=== PATIENT | female | born 1985 | race Caucasian/White ===

== ENCOUNTER 2022-04-03 08:31 | Day surgery (SDC) | payer BC, OTHER ==
--- NOTE | 2022-04-03 08:28 | HP ---
DATE OF SURGERY: 04/03/2022 HISTORY OF PRESENT ILLNESS: The patient is a 37-year-old with some upper and lower abdominal pain, some nausea and vomiting, sometimes cramping in the middle of the night. She had colonoscopy a couple of years ago. No upper endoscopy in the past. She had complete hysterectomy for endometriosis in the past. PAST MEDICAL HISTORY: Depression, irritable bowel syndrome. PAST SURGICAL HISTORY: Hysterectomy. She had colonoscopy in the past. MEDICATIONS: Linzess, Desvenlafaxine. ALLERGIES: NKDA. FAMILY HISTORY: Diabetes, hypertension, thyroid disease. SOCIAL HISTORY: No smoking or alcohol abuse. REVIEW OF SYSTEMS: Fourteen systems reviewed. No chest pain or palpitations. Pertinent for as noted above. Otherwise negative or noncontributory as above and per preadmission questionnaire. PHYSICAL EXAMINATION: BMI 27.46. GENERAL: No acute distress. HEENT: Sclerae nonicteric. NECK: No JVD. CHEST: Equal excursion, nonlabored breathing. CVS: Regular rate and rhythm. ABDOMEN: Soft. No peritoneal signs. EXTREMITIES: No significant edema. No cyanosis. NEURO: Alert, oriented, moving extremities symmetrically. PSYCH: Appropriate mood and affect. SKIN: Dry. IMPRESSION: Some nausea and vomiting, some abdominal pain of unclear etiology. Options discussed. I feel the patient would benefit from upper endoscopy to evaluate for gastritis, peptic ulcer disease, esophagitis, celiac disease or other etiology. General risk of bleeding or infection, risk of bowel injury or perforation, risk of missed or nondiagnosis or incomplete exam, possibly requiring barium swallow, other studies or procedures. General risk of anesthesia or sedation. If negative, may need to consider gallbladder work up or CT scan. Would have to consider repeating colonoscopy if not done in the past year or two. She understands and agrees to the planned procedure, will proceed with under MAC anesthesia as an outpatient.
[2022-04-03] MEDS ORDERED: Lactated Ringers 1,000 ML IV SCH (09:00)
[2022-04-03] MEDS ORDERED: Lactated Ringers 1,000 ML IV ONE (09:01)
[2022-04-03] MEDS ORDERED: DIPRIVAN 200 MG/20 ML IV ONE (12:52)
[2022-04-03] MEDS ORDERED: Xylocaine-Mpf 2% 5 Ml Vial ONE (12:52)
[2022-04-03] MEDS ORDERED: Versed 2 MG/2 ML Injection ONE (12:52)
[2022-04-03 13:34] VITALS: O2SAT 97
[2022-04-03 13:43] VITALS: BP 95/68; PULSE 78
--- NOTE | 2022-04-04 08:01 | OP ---
SURGERY DATE/TIME: 04/03/2022 3256 PREOPERATIVE DIAGNOSIS: History of some abdominal, nausea and vomiting of unclear etiology, need for upper endoscopy. POSTOPERATIVE DIAGNOSES: 1) Mild gastritis. 2) Small benign appearing gastric polyp. 3) Slight erythema distal esophagus. 4) ASA Class II. PROCEDURES: 1) EGD with cold biopsy of small bowel to evaluate for celiac sprue. 2) Cold biopsy of the antrum to evaluate for Helicobacter pylori. 3) Cold biopsy gastric polyp. 4) Cold biopsy distal esophagus mild erythema biopsy obtained to evaluate for some early esophagitis. 5) Cold biopsy mid esophagus to evaluate for eosinophilic esophagitis. SURGEON: Dr. Christophe Smith. ANESTHESIA: MAC. ESTIMATED BLOOD LOSS: Minimal. INDICATIONS: As noted above. Risks and benefits explained in detail and not limited to and consent obtained. DESCRIPTION OF PROCEDURE AND FINDINGS: The patient is taken to the endoscopy room. MAC anesthesia introduced. After official time out and no disagreement with planned procedure, bite block positioned. Video gastroscope easily passed down the esophagus through the patent pylorus to the third portion of the duodenum. First, second, third portion of duodenum grossly unremarkable. Cold biopsy taken to evaluate for celiac sprue. The patient is coughing a lot. Staff unplugged the monitor. After waiting a few minutes having picture back, the scope pulled back in the stomach. She had some mild gastric erythema, minimal to mild gastritis. Cold biopsy taken to evaluate for Helicobacter pylori. There is no evidence of ulcer. On retroflex, small gastric polyp in the fundus. No signs of any large hiatal hernia. The scope is pulled back. Biopsies of gastric polyp were taken, appeared to be benign fundal gland polyp. Scope pulled back to gastroesophageal junction about 40 cm. Z-line was fairly crisp. There is a little bit of erythema distal esophagus. Whether this is from the patient coughing during the procedure and moving, cold biopsy taken to evaluate for some early esophagitis versus normal variation of distal esophagus. Otherwise the remainder of the esophagus no signs of any mucosal lesions. Cold biopsy mid esophagus to evaluate for eosinophilic esophagitis and to rule out other causes of her symptoms. The scope is withdrawn. Findings discussed with the family in the waiting room.
== END 2022-04-03 13:50 | disposition home or self-care (01) ==
LOC: SDC 08:31
PROVIDERS: ATTEND Surgery
DX: K29.70 Gastritis, unspecified, without bleeding (principal); R11.2 Nausea with vomiting, unspecified; R10.9 Unspecified abdominal pain; K31.7 Polyp of stomach and duodenum; K22.89 Other specified disease of esophagus
CPT/HCPCS: J2250; J2704